=== PATIENT | female | born 1975 | race Caucasian/White ===

== ENCOUNTER 2021-08-02 18:38 | Emergency (ER) | payer OTHER ==
[~2021-08-02 18:38] MED LIST: ALLEGRA-D 24 H1 EACH PO; AUGMENTIN 875-1 EACH PO; BENTYL 20MG TAB20 MG PO; DIFLUCAN200 MG PO; FLONASE 0.05% N16 GM; GLUCOPHAGE500 MG PO; IMITREX100 MG PO; LORTAB 7.5-3251 EACH PO; PROTONIX40 MG PO; TENORMIN 50 MG50 MG PO; VITAMIN D250000 UNIT PO
[2021-08-02 19:58] LABS: HEMOGLOBIN 15.6 gm/dl (12.3-15.3); RED BLOOD COUNT 5.21 M/UL (4.00-5.10); WHITE BLOOD COUNT 7.3 K/UL (4.5-11.0)
[2021-08-02 20:22] LABS: BUN/CREATININE RATIO 10 (0-10)
[2021-08-02] MEDS ORDERED: OMNICEF 300 MG300 MG PO (22:51)
[2021-08-02] MEDS ORDERED: ZOFRAN ODT 4 MG4 MG PO (22:51)
[2021-08-02] MEDS ORDERED: BENTYL 20MG TAB20 MG PO (22:51)
== END 2021-08-02 23:08 | disposition home or self-care (01) ==
LOC: ER1 18:38
PROVIDERS: Physician Assistant
DX: N39.0 Urinary tract infection, site not specified (principal); E11.9 Type 2 diabetes mellitus without complications; I10 Essential (primary) hypertension; Z90.49 Acquired absence of other specified parts of digestive tract; Z90.89 Acquired absence of other organs; Z90.710 Acquired absence of both cervix and uterus; Z88.1 Allergy status to other antibiotic agents
CPT/HCPCS: 80053; 81001; 83605; 83690; 85025; 96374; 96375; 99284; J1885; J2405; Q9967